=== PATIENT | female | born 1980 | race Caucasian/White ===

== ENCOUNTER → 2017-06-13 | Outpatient (CLI) | payer BC ==
[2017-06-13 15:07] LABS: THYROID STIMULATING HORMONE 1.52 uIu/ml (0.300-4.500)
[2017-06-16 13:34] LABS: CHLAMYDIA TRACH RNA*** NOT DETECTED (NOT DETECTED); GC (NEIS GONORRHOEAE)RNA** NOT DETECTED (NOT DETECTED)
== END | disposition home or self-care (01) ==
LOC: C.LAB1850 12:53
PROVIDERS: ATTEND Obstetrics & Gynecology
DX: Z34.02 Encounter for supervision of normal first pregnancy, second trimester (principal); Z3A.00 Weeks of gestation of pregnancy not specified

== ENCOUNTER → 2017-06-13 | Outpatient (CLI) | payer BC | END | disposition home or self-care (01) | LOC: C.PAPS 16:31 | PROVIDERS: ATTEND Obstetrics & Gynecology | DX: Z01.419 Encounter for gynecological examination (general) (routine) without abnormal findings (principal); Z3A.00 Weeks of gestation of pregnancy not specified ==

== ENCOUNTER → 2017-07-11 | Outpatient (CLI) | payer BC ==
[2017-07-11 18:25] LABS: URINE APPEARANCE CLEAR (CLEAR); URINE BILIRUBIN NEG (NEG); URINE COLOR YELLOW; URINE EPITHELIAL CELL AUTO 20-30 /lpf (0-5); URINE NITRITE NEG (NEG); URINE SPECIFIC GRAVITY 1.016 (1.000-1.030); UROBILINOGEN NEG (NEG)
[2017-07-11 18:29] LABS: MANUAL MICROSCOPIC REQUIRED? NO; REVIEW REQ? YES
== END | disposition home or self-care (01) ==
LOC: C.LABSPEC 17:41
PROVIDERS: ATTEND Obstetrics & Gynecology
DX: Z34.03 Encounter for supervision of normal first pregnancy, third trimester (principal)

== ENCOUNTER → 2017-09-10 | Outpatient (CLI) | payer BC | END | disposition home or self-care (01) | LOC: C.LABSPEC 12:51 | PROVIDERS: ATTEND Obstetrics & Gynecology | DX: Z34.03 Encounter for supervision of normal first pregnancy, third trimester (principal) ==

== ENCOUNTER 2017-10-15 01:50 | Outpatient (CLI) | payer BC ==
[2017-10-15] MEDS ORDERED: LEVO50TA PO (09:12)
[2017-10-15] MEDS ORDERED: FOLI1TAB8 PO (09:12)
--- NOTE | 2017-10-18 12:34 | EDITING REQUIRED CODING QUERY ---
DIAGNOSIS NEEDED To promote full compliance with coding requirements relating to patient care, physician participation is requested in all cases of automobile upholsterer apprentice uncertainty. Please assist us with the question(s) below: Coding Question: The patient received care in labor and delivery on 10/15/17 as noted within the record. Please document the diagnosis that is being addressed by the medication/treatment. Provider Response: DIAGNOSIS: False labor WEEKS OF GESTATION: 41 weeks ega Thank you for your assistance, Gayathri Anderson - Tube Sorter
== END 2017-10-15 02:50 ==
LOC: C.LD 01:50 → C.OPB 01:50
PROVIDERS: ATTEND Obstetrics & Gynecology
DX: O47.1 False labor at or after 37 completed weeks of gestation (principal); Z3A.41 41 weeks gestation of pregnancy

== ENCOUNTER 2017-10-15 08:53 | Inpatient (IN) | payer OTHER, BC ==
[~2017-10-15] VITALS: Ht 167.6 cm; Wt 85.5 kg
[2017-10-15] MEDS ORDERED: LEVO50TA PO (09:12)
[2017-10-15] MEDS ORDERED: FOLI1TAB8 PO (09:12)
[2017-10-15] MEDS ORDERED: LACTATED RINGER'S 1000ML 1,000 ML IV PRN (09:30)
[2017-10-15] MEDS ORDERED: LACTATED RINGER'S 1000ML 500 ML IV PRN ×2 (09:31→11:15)
[2017-10-15] MEDS ORDERED: OXYTOCIN 30 UNITS/500ML NSS IV PRN (09:45)
[2017-10-15 09:53] LABS: HEMATOCRIT 35.4 % (37-47); HEMOGLOBIN 11.6 g/dL (12.0-16.0); MEAN CELL VOLUME 85.5 fL (80-100); MEAN CORPUSCULAR HGB CONC 32.8 g/dl (32-36); MEAN PLATELET VOLUME 9.8 fL (7.4-10.4); PLATELET COUNT 264 K/uL (130-400); RED CELL DISTRIBUTION WIDTH CV 14.3 % (11.5-14.5); RED CELL DISTRIBUTION WIDTH SD 44.4 fL (36.4-46.3)
[2017-10-15 10:16] VITALS: Ht 167.6 cm; Wt 85.5 kg
[2017-10-15] MEDS ORDERED: EpHEDrine SULFATE INJ 50 MG/ML AMP ONE (10:22)
[2017-10-15] MEDS ORDERED: BUPIVACAINE 0.25% 30 ML VIAL ONE (10:22)
[2017-10-15] MEDS ORDERED: FENTANYL CITRATE INJ 50 MCG/1 ML 2 ML VIAL ONE (10:22)
[2017-10-15] MEDS ORDERED: FENTANYL 2MCG/ML ROPIV 1.25MG/ML 100ML BAG EPI ONE (10:23)
[2017-10-15] MEDS: LACTATED RINGER'S 1000ML 1,000 ML IV SCH ×2 (10:29→17:29)
[2017-10-15] MEDS ORDERED: EpHEDrine SULFATE INJ 50 MG/ML AMP IV PRN (11:15)
[2017-10-15] MEDS ORDERED: NALOXONE HCL INJ 0.4 MG/1 ML VIAL/CARP IV PRN (11:15)
[2017-10-15] MEDS ORDERED: DiphenhydrAMINE HCL 50 MG/ML VIAL IV PRN (11:15)
[2017-10-15] MEDS ORDERED: NALBUPHINE HCL INJ 10 MG/ML AMP IV PRN (11:15)
[2017-10-15] MEDS ORDERED: NALOXONE HCL INJ 1 MG in SODIUM CHLORIDE 0.9% 1000ML 1,000 ML IV PRN (11:15)
[2017-10-15] MEDS: FENTANYL 2MCG/ML ROPIV 1.25MG/ML 100ML BAG EPI PRN ×3 (14:57→23:03)
[2017-10-15] MEDS ORDERED: PENICILLIN G POTASSIUM IV 3 MU in DEXTROSE 5% 100ML 100 ML IV PRN (21:45)
[2017-10-15] MEDS ORDERED: PENICILLIN G POTASSIUM IV 6 MU in DEXTROSE 5% 250ML 250 ML IV ONE (22:00)
[2017-10-15] MEDS ORDERED: ACETAMINOPHEN 650 MG SUPP PR STA (22:21)
[2017-10-16] MEDS: LACTATED RINGER'S 1000ML 1,000 ML IV SCH (00:35)
[2017-10-16] MEDS: FENTANYL 2MCG/ML ROPIV 1.25MG/ML 100ML BAG EPI PRN (05:14)
--- NOTE | 2017-10-16 07:31 | Anesthesia Procedure Note ---
Anesthesia Epidural Removal Nt Date & Time Oct 16, 2017 at 07:31 Vital Signs Pain Intensity: 2.0 Notes Mental Status: alert / awake / arousable, participated in evaluation Nausea / Vomiting: adequately controlled Pain: adequately controlled Airway Patency, RR, SpO2: stable & adequate BP & HR: stable & adequate Hydration State: stable & adequate Neuraxial Anesthesia: was administered Anesthetic Complications: no major complications apparent, pt satisfied with anesthetic care Epidural: removed without complications, with tip intact
[2017-10-16] MEDS ORDERED: LACTATED RINGER'S 1000ML 1,000 ML IV SCH (07:38)
[2017-10-16] MEDS ORDERED: OXYCODONE/ACETAMINOPHEN 5-325 TAB PO PRN (07:45)
[2017-10-16] MEDS ORDERED: HYDROCORTISONE ACETATE 25 MG SUPP PR PRN (07:45)
[2017-10-16] MEDS ORDERED: LANOLIN OINT EXT PRN (07:45)
[2017-10-16] MEDS ORDERED: OXYTOCIN 30 UNITS/500ML NSS IV PRN (07:45)
[2017-10-16] MEDS ORDERED: ACETAMINOPHEN 325 MG TAB PO PRN (07:45)
[2017-10-16] MEDS ORDERED: BENZOCAINE 20% AER SPR 82.5 GM CAN EXT PRN (07:45)
[2017-10-16] MEDS ORDERED: DIPHTHERIA/TETANUS/PERTUSSIS 0.5 ML SYR/VIAL IM. ONE (07:45)
[2017-10-16] MEDS ORDERED: SUPERCREAM 0.870 % 15GM JAR EXT PRN (07:45)
[2017-10-16] MEDS: DOCUSATE SODIUM 100 MG CAP PO SCH (08:00)
[2017-10-16] MEDS: PRENATAL VITAMIN TAB PO SCH (08:00)
--- NOTE | 2017-10-16 08:04 | DELIVERY SUMMARY ---
DATE OF OPERATION: 10/16/2017 PREOPERATIVE DIAGNOSES: 1. Spence intrauterine at 41+ weeks. 2. Onset of labor. 3. Group B strep negative. 4. Maternal fever and suspected early chorioamnionitis. POSTOPERATIVE DIAGNOSES: Same. PROCEDURE: Spontaneous vaginal delivery. SURGEON: Yarelis Ibarra MD. CLOTH COLORER: None. ESTIMATED BLOOD LOSS: 400. FINDINGS: Placenta spontaneous and intact with a 3-vessel cord. COMPLICATIONS: None. DISPOSITION: Stable in labor and delivery. DESCRIPTION OF PROCEDURE: Kelly Fortune reached complete dilation with an urge to push and I was called to the room as her vertex was at +3 station. I prepped and gowned for delivery and coached the patient through her first half an hour of pushing. She was making very effective pushing efforts and moving the vertex downwards. My assessment of the position was occiput posterior. As delivery was not imminent, I briefly scrubbed out to go and attend to another patient's care and then returned to the room. I regowned and gloved and with further coaching and pushing efforts, the patient was able to deliver the head in a direct occiput anterior presentation. Gentle downward traction on the head and neck revealed that although there was no palpable nuchal cord there was actually a right shoulder cord very high up. This was then able to be retrieved and reduced over the head. Through the next push, the anterior shoulder which was the right shoulder delivered easily followed by the left shoulder and the reminder of a vigorous male was then delivered easily and placed on the maternal abdomen. The cord was doubly clamped and cut by the father of the baby. The infant quickly became vocal and was moving all four extremities equally. The placenta was spontaneously delivered and noted to have a three-vessel cord and to be intact. The cervix, vagina and perineum were examined including the use of a sterile Grave speculum to allow full inspection of the cervix. There were no lacerations requiring repair. Bimanual massage was undertaken due to some brisk bleeding and a gentle exploration of the lower uterine segment revealed no retained placenta but slight bogginess. Fortunately, uterine massage was all that was required as well as the usual dilute Pitocin infusion to assure normal lochia and good uterine contraction. At the present time, both mother and are in the delivery room, doing well having tolerated the delivery in stable condition. I attest to the content of the Intraoperative Record and any orders documented therein. Any exceptions are noted below. MTDD
--- NOTE | 2017-10-16 11:32 | Discharge Instructions ---
Discharge Instructions Date of Service Oct 16, 2017. Admission Reason for Admission: R/O Labor Discharge Discharge Diagnosis / Problem: Vaginal Delivery Discharge Goals Goal(s): Routine recovery after delivery Medications Continue Dispensed Medications: supercream, dermaplast, tucks, lansinoh Activity Recommendations Activity Limitations: per Instructions/Follow-up section . Instructions / Follow-Up Instructions / Follow-Up ACTIVITY RECOMMENDATIONS: * Gradual return to full activity over the next 2-3 weeks. * No lifting - nothing heavier than baby over the next 2-3 weeks. * Do not engage in vigorous exercise, sexual activity or sports until cleared by your physician. * Do not drive or operate any motorized equipment until cleared by your physician. * You may shower/bathe daily. MEDICATIONS: For discomfort or pain, you may use Acetaminophen (Tylenol), Ibuprofen (Advil), or Naproxen (Aleve) following the package directions. For constipation you may use Colace following the package directions. BREAST CARE: If you are not breast feeding: * Wear a supportive bra 24 hours a day for one to two weeks. * Avoid stimulating your breasts and nipples as much as possible during the first few weeks after delivery. * When taking a shower, have the warm water hit your back, not breasts. * When your breasts feel full, apply ice packs. Usually three to four times a day helps ease the discomfort. * Take a mild pain medication (Tylenol / Motrin) when you are uncomfortable. If breast feeding: * Use breast milk to lubricate nipples. Lansinoh cream may be used for sore nipples. You do not need to remove cream prior to breast feeding. If using a different brand of cream, check the label for directions regarding removal of cream prior to nursing. * Wear a supportive bra. * If having problems with breasts or breast feeding, call a behavioral health consultant or your health care provider. EPISIOTOMY CARE: After delivery, if you have an episiotomy (stitches), the following steps will ease discomfort and aid healing. * For the first 24 hours after delivery, place ice packs next to your episiotomy to help reduce swelling. * After the first 24 hour-period, sitz baths, either portable or in the tub, are suggested. A shower with a shower arm sprayed over the episiotomy may be comforting. * Karyna care should be done after each voiding and bowel movement. Squirt warm water from a plastic bottle over the perineum (region of the body between the anus and urinary opening) and pat dry. * Use Dermoplast to ease discomfort. Shake container. [place] directly over the episiotomy. Place a Tucks on a clean sanitary pad next to your episiotomy. SPECIAL CARE INSTRUCTIONS: When you are discharged from the hospital, it is important for you to follow the instructions listed below: * During the first week at home, you should be able to care for yourself and your baby. In addition, the usual light household activities are encouraged. * Limit your activities to the way you feel. Do not try to clean the house or move furniture. Be sensible. * If you actively engage in sports and have done so up until the time of your delivery, you may resume these activities as soon as you feel able. This may take up to one month or even longer. Use good judgment. * Continue to take your vitamins for at least six weeks after the of your baby. * Your diet need not be limited unless you were on a special diet before your delivery. Breast-feeding mothers need around 2500 calories per day and at least 64-80 ounces of fluid per day (8 to 10 glasses). * You should eat foods from the four major food groups. Crash diets or fad diets are to be avoided. Eating lean meats, fresh fruits and vegetables, low-fat dairy products, high fiber foods and a regular exercise program, will help you get back to your pre- weight without putting your health at risk. * Constipation is sometimes a problem after delivery. Take a mild laxative as needed. If breast feeding, Milk of Magnesia is acceptable to use. You may use a suppository or Fleets enema if no episiotomy. * A daily shower or tub bath is suggested. Be sure to thoroughly and gently dry the perineum. * A bloody vaginal discharge will usually continue until around four weeks post . A small amount of bleeding may continue for as long as six weeks. Vaginal discharge changes from the bright red bleeding after delivery to pink then brownish and finally yellowish-pink before becoming white and disappearing. * Bleeding may increase with activity. Your first period may come in 4-8 weeks. If you are breast feeding, your period may be delayed even longer. * [place] (sex) can begin whenever both you and your partner feel comfortable and do not have any form of genital infection. It is recommended that you wait at least six weeks for internal and external healing to occur. If you have questions, please talk to your health care practitioner. A condom should be used to prevent infection and . * Foreplay, gentle intercourse and lubrication is very important the first several times to prevent pain. A water-based lubricant such as K-Y jelly or Astroglide may be used. * If you have RH negative blood and your baby is RH positive, you will receive RHOGAM by injection prior to discharge. The nurse will give you a card to keep with you that has the date and place that you received RHOGAM after delivery. * During your care, you had a Rubella screen done to check for the presence of rubella antibodies in your blood. If your test was negative, you will receive a Rubella vaccine prior to discharge. This vaccine may cause a fever, soreness at the injection site and flu-like symptoms. If these symptoms persist, notify your health care practitioner. is not advised for one month after a Rubella vaccine. * Verbalizes understanding of car seat law as reviewed with patient nursing. * Car Seat hand-out given and reviewed with patient by nursing. * Shaken baby information reviewed with patient by nursing. Call you doctor if: * Heavy bleeding (saturating several pads an hour) or passing clots the size of your fist. * A fever >101 degrees F (38.3 degrees C) on two occasions four hours apart and /or chills. * Unusual pain in the pelvic or vaginal areas. * "Baby Blues" lasting longer than two weeks. If you have any questions or concerns, call your health care practitioner at . FOLLOW UP VISIT: * Please call the office at to schedule a 6 week examination. It is important you keep this appointment. It is important for you to make arrangements for either yearly or twice yearly check-ups thereafter. Current Hospital Diet Patient's current hospital diet: Regular OB Diet Discharge Diet Recommended Diet: Regular Diet Pending Studies Studies pending at discharge: no Medical Emergencies . Who to Call and When: Medical Emergencies: If at any time you feel your situation is an emergency, please call 911 immediately. . Non-Emergent Contact Non-Emergency issues call your: Primary Care Provider . . "Provider Documentation" section prepared by Mane Hardwick. . VTE Core Measure Inpt VTE Proph given/why not?: Treatment not indicated
[2017-10-16 13:45] VITALS: BP 118/72; PULSE 85; TEMP 36.8
[2017-10-16 14:00] VITALS: BP 120/66; PULSE 92; TEMP 37
[2017-10-16 15:30] VITALS: BP 107/69; PULSE 88; TEMP 36.8
[2017-10-16 19:30] VITALS: BP 118/74; PULSE 99; TEMP 36.9
[2017-10-16] MEDS: IBUPROFEN 600 MG TAB PO PRN (19:57)
[2017-10-17 00:25] VITALS: BP 110/73; PULSE 76; TEMP 36.3
[2017-10-17 03:35] VITALS: BP 100/68; PULSE 90; TEMP 36.4
[2017-10-17] MEDS: IBUPROFEN 600 MG TAB PO PRN ×3 (03:37→18:00)
--- NOTE | 2017-10-17 06:37 | Progress Note ---
Subjective Oct 17, 2017. Subjective conversation w/ patient (Patient seen and examined at bedside. No acute overnight events reported) Ambulation: limited ambulation Voiding: no voiding problems Passing Gas: Yes Diet Tolerance: Regular Diet Lochia: Moderate Feeding Type: Breast Feeding Pain: Minimal, worse with sitting forward. Controlled with pain meds Review of Systems Constitutional: No fever, No chills, No sweats Respiratory: No cough, No shortness of breath Cardiac: No chest pain, No edema Breast: No breast pain Abdomen: No pain, No nausea, No vomiting Female : No dysuria Objective Vital Signs Date Time Temp Pulse Resp B/P (MAP) Pulse Ox O2 Delivery O2 Flow Rate FiO2 10/17/17 03:35 36.4 90 16 100/68 (79) Room Air 10/17/17 00:25 Room Air 10/17/17 00:25 36.3 76 16 110/73 (85) Room Air 10/16/17 19:30 36.9 99 18 118/74 (89) Room Air 10/16/17 15:30 Room Air 10/16/17 15:30 36.8 88 18 107/69 (82) Room Air 10/16/17 14:00 37.0 92 18 120/66 (84) Room Air 10/16/17 13:45 36.8 85 18 118/72 (87) Room Air 10/16/17 10:15 Room Air Physical Exam General Appearance: WELL-APPEARING, WD/WN, NO APPARENT DISTRESS Respiratory/Chest: chest non-tender, lungs clear, normal breath sounds, no respiratory distress, no accessory muscle use Cardiovascular: regular rate, rhythm, no edema, no gallop, no murmur Abdomen: normal bowel sounds, non tender, soft, no organomegaly, no pulsatile mass Fundus: Firm, Non-Tender, Relation to Umbilicus (at umbilicus) Extremities: normal range of motion, non-tender, normal inspection, no pedal edema, no calf tenderness Laboratory Results Last 24 Hours Test 10/17/17 06:15 Medications Current Inpatient Medications Medications (Trade) Dose Ordered Sig/Obdulio Route Start Time Stop Time Status Last Admin Dose Admin Lactated Ringer's 500 ml @ 999 mls/hr Q31M PRN IV 10/15/17 09:31 11/14/17 09:30 Lactated Ringer's 1,000 ml @ 125 mls/hr Q8H IV 10/16/17 07:38 11/15/17 07:37 Oxytocin (Pitocin IV) 30 units UD PRN IV 10/16/17 07:45 11/15/17 07:44 Benzocaine (Dermoplast Aero Spr) 1 appln PRN PRN EXT 10/16/17 07:45 11/15/17 07:44 Cocaine HCl (Supercream 0.870% Cr) BID PRN EXT 10/16/17 07:45 10/30/17 07:44 Hydrocortisone Acetate (Anusol Hc Supp) 25 mg BID PRN [place] 10/16/17 07:45 11/15/17 07:44 Lanolin (Lanolin Oint) PRN PRN EXT 10/16/17 07:45 11/15/17 07:44 Prenat Multivit/ [place]/Iron/Folic Ac ( Vitamin Tab) 1 tab DAILY PO 10/16/17 08:00 11/15/17 07:59 Ibuprofen (Motrin Tab) 600 mg Q4H PRN PO 10/16/17 07:45 11/15/17 07:44 10/17/17 03:37 600 MG Acetaminophen (Tylenol Tab) 650 mg Q6H PRN PO 10/16/17 07:45 11/15/17 07:44 Oxycodone/ Acetaminophen (Percocet 5-325mg Tab) 1 tab Q4H PRN PO 10/16/17 07:45 10/30/17 07:44 Docusate Sodium (coLACE CAP) 100 mg BID PO 10/16/17 08:00 11/15/17 07:59 Assessment and Plan Post- Day#: 1 Continue Routine Care: 36 year old [id number] s/p NVD day 1 - continue encouraging ambulation and - monitor lochia - O+, rubella immune and GBS -ve - vitals reviewed and wnl - continue analgesia prn - Hgb 11.6 on arrival, will check today's Hgb when available Resident Physician Supervision Note: I interviewed and examined the patient. Discussed with Dr. Hardwick and agree with findings and plan as documented in the note. Any exceptions or clarifications are listed here: [None] Documented By: Damien Enciso Resident Tracking Resident Involvement: Resident Care Provided Care Provided: OB Delivery
[2017-10-17 06:48] LABS: HEMATOCRIT 28.4 % (37-47); HEMOGLOBIN 9.1 g/dL (12.0-16.0)
[2017-10-17 07:50] VITALS: BP 103/67; PULSE 69; TEMP 36.3; O2SAT 96
[2017-10-17] MEDS: PRENATAL VITAMIN TAB PO SCH (08:46)
[2017-10-17] MEDS: DOCUSATE SODIUM 100 MG CAP PO SCH ×2 (08:46→19:38)
[2017-10-17 13:15] VITALS: BP 119/85; PULSE 98; TEMP 36.6; O2SAT 98
[2017-10-17 16:25] VITALS: BP 121/77; PULSE 98; TEMP 36.6; O2SAT 98
[2017-10-18] VITALS: BP 115/70; PULSE 91; TEMP 36.6; O2SAT 97
--- NOTE | 2017-10-18 06:40 | Progress Note ---
Subjective Oct 18, 2017. Subjective conversation w/ patient (Patient seen and examined at bedside. No overnight events reported) Ambulation: ambulating normally Voiding: no voiding problems Diet Tolerance: Regular Diet Lochia: Moderate Feeding Type: Breast Feeding Pain: Mild burning when urine touches perineal area. No abdo pain. Review of Systems Constitutional: No fever, No chills Respiratory: No cough, No shortness of breath Cardiac: No chest pain Breast: No breast pain Abdomen: No pain, No nausea, No vomiting Female : No dysuria Objective Vital Signs Date Time Temp Pulse Resp B/P (MAP) Pulse Ox O2 Delivery O2 Flow Rate FiO2 10/18/17 00:00 36.6 91 18 115/70 (85) 97 Room Air 10/18/17 00:00 97 Room Air 10/17/17 16:25 Room Air 10/17/17 16:25 36.6 98 18 121/77 (92) 98 Room Air 10/17/17 13:15 36.6 98 24 119/85 (96) 98 Room Air 10/17/17 10:12 Room Air 10/17/17 08:05 Room Air 10/17/17 07:50 36.3 69 16 103/67 (79) 96 Room Air Physical Exam General Appearance: WELL-APPEARING, WD/WN, NO APPARENT DISTRESS Respiratory/Chest: chest non-tender, lungs clear, normal breath sounds, no respiratory distress, no accessory muscle use Cardiovascular: regular rate, rhythm, no edema, no gallop, no murmur Abdomen: normal bowel sounds, non tender, soft Fundus: Firm, Non-Tender, Relation to Umbilicus (1cm below u) Extremities: non-tender, normal inspection, no pedal edema, no calf tenderness Medications Current Inpatient Medications Medications (Trade) Dose Ordered Sig/Obdulio Route Start Time Stop Time Status Last Admin Dose Admin Lactated Ringer's 500 ml @ 999 mls/hr Q31M PRN IV 10/15/17 09:31 11/14/17 09:30 Lactated Ringer's 1,000 ml @ 125 mls/hr Q8H IV 10/16/17 07:38 11/15/17 07:37 Oxytocin (Pitocin IV) 30 units UD PRN IV 10/16/17 07:45 11/15/17 07:44 Benzocaine (Dermoplast Aero Spr) 1 appln PRN PRN EXT 10/16/17 07:45 11/15/17 07:44 Cocaine HCl (Supercream 0.870% Cr) BID PRN EXT 10/16/17 07:45 10/30/17 07:44 10/18/17 01:12 15 GM Hydrocortisone Acetate (Anusol Hc Supp) 25 mg BID PRN [place] 10/16/17 07:45 11/15/17 07:44 Lanolin (Lanolin Oint) PRN PRN EXT 10/16/17 07:45 11/15/17 07:44 Prenat Multivit/ [place]/Iron/Folic Ac ( Vitamin Tab) 1 tab DAILY PO 10/16/17 08:00 11/15/17 07:59 10/17/17 08:46 1 TAB Ibuprofen (Motrin Tab) 600 mg Q4H PRN PO 10/16/17 07:45 11/15/17 07:44 10/17/17 18:00 600 MG Acetaminophen (Tylenol Tab) 650 mg Q6H PRN PO 10/16/17 07:45 11/15/17 07:44 Oxycodone/ Acetaminophen (Percocet 5-325mg Tab) 1 tab Q4H PRN PO 10/16/17 07:45 10/30/17 07:44 Docusate Sodium (coLACE CAP) 100 mg BID PO 10/16/17 08:00 11/15/17 07:59 10/17/17 19:38 100 MG Assessment and Plan Post- Day#: 2 Continue Routine Care: 36 year old [id number] s/p NVD day 2 - continue encouraging ambulation and - monitor lochia - O+, rubella immune and GBS -ve - vitals reviewed and wnl - continue analgesia prn - Hgb 11.6 on arrival, decreased to 9.1 yesterday - review discharge instructions today as pt ready for d/c Resident Physician Supervision Note: I interviewed and examined the patient. Discussed with Dr. Hardwick and agree with findings and plan as documented in the note. Any exceptions or clarifications are listed here: Doing well. Plan d/c today. Instructions given. Documented By: Nallely Walter Resident Tracking Resident Involvement: Resident Care Provided Care Provided: OB Delivery
[2017-10-18 08:50] VITALS: BP 125/79; PULSE 87; TEMP 36.3
[2017-10-18] MEDS: DOCUSATE SODIUM 100 MG CAP PO SCH (09:12)
[2017-10-18] MEDS: PRENATAL VITAMIN TAB PO SCH (09:12)
[2017-10-18 16:00] VITALS: BP_DIAS 79; PULSE 87; TEMP 36.3
== END 2017-10-18 16:05 | disposition home or self-care (01) | DRG 774 ==
LOC: C.OPB 08:53 → C.LD 08:53 → C.OPB 09:31 → C.OBG 10-16 10:43
PROVIDERS: ADMIT Obstetrics & Gynecology; ATTEND Obstetrics & Gynecology
PROC: 10E0XZZ Delivery of Products of Conception, External Approach (ICD-10-PCS; principal; 2017-10-16)
PROC: 3E033VJ Introduction of Other Hormone into Peripheral Vein, Percutaneous Approach (ICD-10-PCS; principal; 2017-10-16)
DX: O75.2 Pyrexia during labor, not elsewhere classified (principal); O41.1231 Chorioamnionitis, third trimester, fetus 1; Z37.0 Single live birth; Z3A.41 41 weeks gestation of pregnancy

== ENCOUNTER → 2018-04-15 | Outpatient (CLI) | payer BC ==
--- NOTE | 2018-04-15 17:04 | DIAGNOSTIC IMAGING REPORT ---
R ANKLE MIN 3 VIEWS, R FOOT MIN 3 VIEWS CLINICAL HISTORY: RIGHT FOOT/ANKLE PAIN COMPARISON STUDY: None. FINDINGS: No fracture or dislocation within the right ankle. Small linear avulsion type fracture along the lateral aspect of the calcaneus. There is also a small linear ossific density along the dorsal aspect of the navicular bone suggesting an additional avulsion type fracture. No dislocation. Mild soft tissue swelling within the right ankle and dorsum of the midfoot. IMPRESSION: 1. Small avulsion type fractures at the lateral calcaneus and dorsal navicular bone. 2. No acute fracture or dislocation within the right ankle. Electronically signed by: Kt Simmons M.D. 04/15/2018 5:03 PM Dictated Date/Time: 04/15/2018 4:56 PM
== END | disposition home or self-care (01) ==
LOC: C.RDSM 10:08
PROVIDERS: ATTEND Family Medicine
DX: S99.911A Unspecified injury of right ankle, initial encounter (principal); X58.XXXA Exposure to other specified factors, initial encounter

== ENCOUNTER 2020-03-20 08:30 | Inpatient (IN) ==
[2020-03-20] MEDS ORDERED: OXYTOCIN 30 UNITS/500 ML BAG IV PRN ×4 (09:18→22:40)
[2020-03-20] MEDS ORDERED: LACTATED RINGER'S 1,000 ML IV PRN (09:18)
--- NOTE | 2020-03-20 09:22 | History & Physical Report ---
Date of Service March 20, 2020 Assessment & Plan (1) Dichorionic diamniotic twin , antepartum: Exam today confirms ruptured membranes her cervix is 3 cm her contraction activity is minimal we believe the rupture of membranes might of occurred 11 hours ago at this stage of recommended Pitocin patient seems to understand I have also strongly recommended epidural as she is twin and I would like to be able to give her the best chance of vaginal delivery specifically if the second baby is coming and we have an epidural I would be able to better guide the second baby's head down into the pelvis the patient seems to understand this Bedside ultrasound does confirm vertex vertex position. I discussed the higher rate of section with twin gestation and in labor History of Present Illness Primary Care Provider: Cali Isreal Patient with a known twin gestation diamniotic dichorionic with 38 completed weeks of gestation patient is known to our practice and has had a relatively uncomplicated twin until recently with baby B was somewhat smaller at 8th percentile estimated weight. She wishes vaginal delivery of both babies are in vertex position with 1 prior vaginal in the past. She describes a rupture of membranes at 1030 last night with leakage of fluid this is trickled on and off today she has had some contraction activity but this seems to have subsided she also has some small amount of bloody discharge. She states both babies are moving Allergies Allergy/AdvReac Type Severity Reaction Status Date / Time No Known Drug Allergies Allergy none Verified 03/18/20 14:35 Home Medications Home Medications Medication Instructions Recorded Confirmed Type levothyroxine 25 mcg tablet 25 mcg PO DAILYBB #40 tab 01/12/20 03/18/20 Rx aspirin 81 mg chewable tablet 81 mg PO DAILY 02/15/20 03/18/20 History ferrous sulfate [iron] 325 mg PO DAILY 03/11/20 03/18/20 History folic acid 1 mg PO DAILY 03/11/20 03/18/20 History Patient History Family History (Updated 03/20/20 @ 08:47 by Neyda Shah RN) Grandmother (Paternal) Thyroid disease Mother Breast cancer Grandfather (Paternal) Pancreatic cancer Social History Preferred Language: Citizen Of [place] Communication Ability: Effective Beliefs That Will Affect Care: None marital status: marital status details: Kirk Ahmadi [phone]) [phone] Current Living Situation: Spouse Current Living Situation Comment: lives with spouse, son, cat-spouse changing litter current occupational status: unemployed current occupation: homemaker Other Information That Helps Us Care for You: No Feels Safe at Home: Yes Safety Concerns: Feels Safe At This Time Smoking Status: Never smoker Hx Alcohol Use: No Hx Substance Use: No Physical Exam Constitutional: WD/WN, vitals as above Respiratory: normal respiratory effort, lungs clear to auscultation Cardiovascular: RRR, no murmur, no edema Genitourinary: Manual OB Exam: + cervical dilation 3 cm, + cervical effacement 50%, + station high and + amniotic fluid (Nitrazine and ferning and pooling positive) OB Exam Monitor Tracing: + external FHT monitor used Results & Data ([facility]) Vital Signs (Past 12 Hours) Vital Signs Temp Pulse Resp BP 03/20/20 08:55 88 125/79 03/20/20 08:45 98.6 F 18 Coding Level of Care Code None Diagnoses Dichorionic diamniotic twin , antepartum O30.049
[2020-03-20 09:45] LABS: Hematocrit (blood only) 35.4 % (37-47); Hemoglobin 11.3 g/dL (12.0-16.0); Mean Corpuscular Hemoglobin 27.6 pg (25-34); Mean Corpuscular Volume 86.3 fL (80-100); Mean Platelet Volume 9.6 fL (7.4-10.4); Platelet Count 221 K/uL (130-400); RDW Coefficient of Variation 17.5 % (11.5-14.5); RDW Standard Deviation 55.4 fL (36.4-46.3); White Blood Count 9.08 K/uL (4.8-10.8)
[2020-03-20 09:57] LABS: Mean Corpuscular Hgb Conc 31.9 g/dL (32-36)
--- NOTE | 2020-03-20 11:23 | Labor Progress Brief Note ---
Date of Service March 20, 2020 Patient is declined our recommendation of Pitocin at this stage however she is starting to contract more on her own I again strongly recommended epidural and early in the process due to the nature of delivery of twins she seems to understand this heart rates are category 12 Assessment & Plan Admission and Anticipated Discharge Date Admission Date: March 20, 2020 Results & Data ([facility]) Vital Signs (Past 12 Hours) Vital Signs Temp Pulse Resp BP 03/20/20 10:30 98.6 F 03/20/20 08:55 88 125/79 03/20/20 08:45 98.6 F 18 Coding Level of Care Code None
--- NOTE | 2020-03-20 12:54 | Labor Progress Brief Note ---
Date of Service March 20, 2020 Patient's contractions have mildly increased but are still spaced apart and heart rates are both category 1 I have again recommended Pitocin the patient is declining at this stage I offered the option of an epidural now she is 4 cm and she is declining this as well if we use an epidural I would recommend Pitocin as well we discussed that there is a window for Pitocin we discussed she has been ruptured membranes for greater than 12 hours now in a contraction pattern has not fully gone into labor and well its increase it is not at the point of active labor patient still declines intervention at this time Assessment & Plan Admission and Anticipated Discharge Date Admission Date: March 20, 2020 Results & Data ([facility]) Vital Signs (Past 12 Hours) Vital Signs Temp Pulse Resp BP 03/20/20 10:30 98.6 F 03/20/20 08:55 88 125/79 03/20/20 08:45 98.6 F 18 Coding Level of Care Code None
--- NOTE | 2020-03-20 12:58 | Labor Progress Brief Note ---
Date of Service March 20, 2020 Note we did discuss the infection risk with prolonged rupture of membranes she is group B strep negative and antibiotics are not indicated now but the patient is made aware of prolonged rupture of membranes being a risk factor for infection Assessment & Plan Admission and Anticipated Discharge Date Admission Date: March 20, 2020 Results & Data ([facility]) Vital Signs (Past 12 Hours) Vital Signs Temp Pulse Resp BP 03/20/20 10:30 98.6 F 03/20/20 08:55 88 125/79 03/20/20 08:45 98.6 F 18 Coding Level of Care Code None
--- NOTE | 2020-03-20 15:01 | Labor Progress Brief Note ---
Date of Service March 20, 2020 Patient still refusing any augmentation of labor at this stage she says she does not wish to make a decision right now she has been offered epidural as well with subsequent Pitocin or Pitocin now she declines these options Assessment & Plan Admission and Anticipated Discharge Date Admission Date: March 20, 2020 Results & Data ([facility]) Vital Signs (Past 12 Hours) Vital Signs Temp Pulse Resp BP 03/20/20 12:30 97.7 F 03/20/20 10:30 98.6 F 03/20/20 08:55 88 125/79 03/20/20 08:45 98.6 F 18 Coding Level of Care Code None
--- NOTE | 2020-03-20 17:55 | Labor Progress Brief Note ---
Date of Service March 20, 2020 Long conversation with the patient and her again I have recommended after examining her cervix which is still 4 cm and 50% effaced I have recommended augmentation with Pitocin. I have also suggested having an epidural as an epidural with twins is really ideal for a number of reasons including potential manipulation of the second baby after delivery of the first and this was explained to them in detail. I discussed they have been ruptured for 19 hours now as well and that there are risks of infection although there is no active elevation in temperature in the mother and the heart rates are not elevated I reviewed that an epidural now with potentially adding Pitocin after the epidural would be my first recommendation. We could also start Pitocin without the epidural I have recommended Pitocin since earlier this morning when she presented to the hospital but she has refused this. She is really not made si gnificant progress she is come from 3 to 4 cm however her contraction pattern has become closer together and her contractions subjectively have become stronger and more painful as well. I expressed my concern of starting Pitocin without the epidural as that is a possibility that her labor would progress quickly and that she might miss her window of epidural Her asked me a number of questions on the timing of epidural response times of anesthesiology and the percentage of time we would need to manipulate the second baby for delivery I tried to give the best reasonable answers I could again I recommend intervention now I have recommended intervention with augmentation and with Pitocin since she arrived in the hospital at this time they are not ready to make a decision but will let us know once they decide I have been in contact with our anesthesiologist as well just to ensure that he knew we had twins and when the patient wishes a consultation we will alert the anesthesiologist Assessment & Plan Admission and Anticipated Discharge Date Admission Date: March 20, 2020 Results & Data ([facility]) Vital Signs (Past 12 Hours) Vital Signs Temp Pulse Resp BP 03/20/20 16:23 97.9 F 78 20 131/79 03/20/20 12:30 97.7 F 03/20/20 10:30 98.6 F 03/20/20 08:55 88 125/79 03/20/20 08:45 98.6 F 18 Coding Level of Care Code None
--- NOTE | 2020-03-20 18:21 | Anesthesiology Consultation ---
Date of Service March 20, 2020 Assessment & Plan (1) Encounter for pre-operative examination: Chart Review Chart Review: Acceptable Risk for Surgery Consults Requested none ASA ASA2 Proposed Anesthesia Anesthesia Type: Labor Epidural Risk / Benefits Reviewed With: PT / POA / Parent / Guardian, Accepts Plan and Informed Consent Obtained History Height/Weight Height: 5 ft 6 in Weight: 92.079 kg Allergies Allergy/AdvReac Type Severity Reaction Status Date / Time No Known Drug Allergies Allergy none Verified 03/18/20 14:35 Medications Home Medications Medication Instructions Recorded Confirmed Last Taken levothyroxine 25 mcg tablet 25 mcg PO DAILYBB #40 tab 01/12/20 03/20/20 03/20/20 aspirin 81 mg chewable tablet 81 mg PO DAILY 02/15/20 03/20/20 03/19/20 ferrous sulfate [iron] 325 mg PO DAILY 03/11/20 03/20/20 03/19/20 folic acid 1 mg PO DAILY 03/11/20 03/20/20 03/19/20 Past Medical History Medical History History of chicken pox Microprolactinoma (Chronic) Pituitary adenoma Exercise / Class Metabolic Activity II 4-5 Yardwork/Stairs/Walk up hill Past Family History Family History Grandmother (Paternal) Thyroid disease Mother Breast cancer Grandfather (Paternal) Pancreatic cancer Past Surgical History Surgical History S/P dilatation and curettage S/P wisdom tooth extraction Past Anesthesia History No Hx of Anesthesia Complications and No Family Hx of Anesthesia Complications History of PONV No Hx of PONV and No Hx of Motion Sickness Social History Smoking Status: Never smoker Hx Alcohol Use: No Hx Substance Use: No substance use type: does not use Physical Exam Vital Signs Last Vital Signs Temp 97.9 F 03/20/20 16:23 Pulse 78 03/20/20 18:01 Resp 20 03/20/20 16:23 BP 125/81 03/20/20 18:01 ENMT Mouth: no dentition abnormality Thyromental Distance: > or= 3.5 Finger Breadths Mallampati Class: II Neck normal visual inspection Respiratory normal respiratory effort Auscultation: lungs clear to auscultation bilaterally Cardiovascular Rate/Rhythm: regular rate and regular rhythm Testing Laboratory Results 03/20/20 09:28 Blood Type O Positive 03/20/20 09:28 Antibody Screen NEGATIVE 03/20/20 09:28
--- NOTE | 2020-03-20 19:03 | Labor Progress Brief Note ---
Date of Service March 20, 2020 pt now accepts pitocin after having epid catheter placed Assessment & Plan Admission and Anticipated Discharge Date Admission Date: March 20, 2020 Results & Data ([facility]) Vital Signs (Past 12 Hours) Vital Signs Temp Pulse Resp BP Pulse Ox 03/20/20 19:00 83 121/68 03/20/20 18:58 79 122/68 03/20/20 18:56 88 117/67 97 03/20/20 18:54 75 124/67 03/20/20 18:53 87 120/63 03/20/20 18:51 82 122/68 98 03/20/20 18:48 100 H 133/70 03/20/20 18:46 82 127/73 97 03/20/20 18:45 90 130/69 03/20/20 18:41 84 133/68 98 03/20/20 18:36 88 98 03/20/20 18:31 80 98 03/20/20 18:26 82 98 03/20/20 18:01 78 125/81 03/20/20 16:23 97.9 F 78 20 131/79 03/20/20 12:30 97.7 F 03/20/20 10:30 98.6 F 03/20/20 08:55 88 125/79 03/20/20 08:45 98.6 F 18 Coding Level of Care Code None
[2020-03-20] MEDS ORDERED: DiphenhydrAMINE HCL 50 MG/ML VIAL IV PRN (20:08)
[2020-03-20] MEDS ORDERED: NALOXONE HCL 1 MG in SODIUM CHLORIDE 0.9% 1000ML 1,000 ML IV PRN (20:08)
[2020-03-20] MEDS ORDERED: fentaNYL 2MCG/ML ROPIV 1.25MG/ML 100 ML BAG EPI PRN (20:08)
[2020-03-20] MEDS ORDERED: ePHEDrine sulfate 50 MG/ML AMP IV PRN (20:08)
[2020-03-20] MEDS ORDERED: NALOXONE HCL 0.4 MG/1 ML VIAL/CARP IV PRN (20:08)
[2020-03-20] MEDS ORDERED: BUPIVACAINE 0.25% 30 ML VIAL ONE (20:19)
[2020-03-20] MEDS ORDERED: ePHEDrine sulfate 50 MG/ML AMP ONE (20:19)
[2020-03-20] MEDS ORDERED: fentaNYL citrate 100 MCG/2 ML VIAL ONE (20:19)
[2020-03-20] MEDS ORDERED: fentaNYL 2MCG/ML ROPIV 1.25MG/ML 100 ML BAG EPI ONE (20:20)
--- NOTE | 2020-03-20 21:57 | Anesthesiology Progress Note ---
Date of Service March 20, 2020 Subjective I was called to initiate the patient's epidural infusion. Upon arriving, the patient was in the operating room. The epidural was bolused with fentanyl 100mcg and 4mL of 0.125% bupivacaine. The patient's labor pains were improved. The patient's vital signs were stable throughout. Physical Exam Vital Signs: Last Vital Signs Temp 97.5 F L 03/20/20 20:59 Pulse 93 H 03/20/20 20:29 Resp 20 03/20/20 20:59 BP 105/67 03/20/20 20:09 Pulse Ox 98 03/20/20 20:29 Results & Data Medications Administered Lactated Ringer's (Lr) 1,000 mls @ 125 mls/hr IV .Q8H PRN; Protocol PRN Reason: L&D Protocol Stop: 03/22/20 09:17 Last Infusion: 03/20/20 19:00 Dose: 125 mls/hr Documented by: [id number] Admin: 03/20/20 18:25 Dose: 999 mls/hr Documented by: [id number] Oxytocin (Pitocin) 30 units in 500 mls @ 1 mls/hr IV .Q24H PRN; Protocol PRN Reason: Labor Induction/Augmentation Stop: 03/22/20 19:01 Last Titration: 03/20/20 21:49 Dose: 59.94 units/hr, 999 mls/hr Documented by: [id number] Admin: 03/20/20 19:27 Dose: 0.06 units/hr, 1 mls/hr Documented by: [id number] Cosigned by: [id number]
--- NOTE | 2020-03-20 22:03 | Delivery Summary ---
Vaginal Delivery Summary Date of Service March 20, 2020 Vaginal Delivery Summary Vaginal twin delivery the patient was taken back to the operating room and her epidural was dosed by anesthesia she was able to push with an anterior lip and delivered the first baby without difficulty it was delivered in occiput posterior position gentle traction on the baby no excessive force was used live vigorous infant cord clamped and cut and handed to pediatrics cord gases and cord blood were obtained second baby was then examined for vaginally and Dr. Zamora used the ultrasound to confirm vertex position baby was initially a little asynclitic but some pressure abdominally and then an artificial rupture of membranes by myself was able to get the baby into the pelvis she was unable to push the baby over a number of contractions this 1 in occiput anterior position. Baby's mouth and nares was entered suctioned and then baby had no nuchal cord and was delivered with gentle traction no excessive force live vigorous male infant cord clamped and cut cord gases obtained cord blood obtained At this stage the placenta was generally gently removed with traction and IV Pitocin was then started small second-degree tear repaired with 3-0 Vicryl estimate blood loss 100 mL sponge and instrument counts correct Note we put straight clamps on the cord gases of baby A and curved clamps on the cord gases of baby B
[2020-03-20] MEDS ORDERED: DIPHTHERIA/TETANUS/PERTUSSIS 0.5 ML SYR/VIAL IM ONE (22:40)
[2020-03-20] MEDS ORDERED: SUPERCREAM 0.870% 15 GM JAR EXT PRN (22:40)
[2020-03-20] MEDS ORDERED: OXYCODONE/ACETAMINOPHEN 5mg/325mg TAB PO PRN (22:40)
[2020-03-20] MEDS ORDERED: bisacodyL 10 MG SUPP PR PRN (22:40)
[2020-03-20] MEDS ORDERED: HYDROCORTISONE ACETATE 25 MG SUPP PR PRN (22:40)
[2020-03-20] MEDS ORDERED: BENZOCAINE 20% AER SPR 82.5 GM CAN EXT PRN (22:40)
[2020-03-20] MEDS ORDERED: ACETAMINOPHEN 325 MG TAB PO PRN (22:40)
[2020-03-20 22:48] LABS: Base Excess Cord Venous Blood -2.8 mEq/L (-7.7-1.9); CO2 Cord Arterial Blood 54 mmHg (39.1-73.5); Cord Venous Blood HCO3 22 mmol/L (18.4-26.8); Cord Venous Blood PCO2 38 mmHg (30.4-57.2); Cord Venous Blood PO2 34 mmHg (14.1-43.3); Cord Venous Blood pH 7.38 (7.20-7.44); HCO3 Cord Arterial Blood 23 mmol/L (19.7-28.5); PO2 Cord Arterial Blood 16 mmHg (4.1-31.7); pH Cord Arterial Blood 7.25 (7.1-7.38)
[2020-03-20 22:49] LABS: Oxygen Sat Cord Arterial Blood < 60.0 % (<60)
[2020-03-20 22:53] LABS: Base Excess Cord Arterial Bld -2.5 mEq/L (-9-1.8); CO2 Cord Arterial Blood 49 mmHg (39.1-73.5); Cord Venous Blood HCO3 22 mmol/L (18.4-26.8); Cord Venous Blood PCO2 38 mmHg (30.4-57.2); Cord Venous Blood PO2 31 mmHg (14.1-43.3); Cord Venous Blood pH 7.37 (7.20-7.44); HCO3 Cord Arterial Blood 24 mmol/L (19.7-28.5); O2 Saturation Cord Venous Bld 68.3 % (<68); Oxygen Sat Cord Arterial Blood < 60.0 % (<60); PO2 Cord Arterial Blood 21 mmHg (4.1-31.7); pH Cord Arterial Blood 7.32 (7.1-7.38)
--- NOTE | 2020-03-20 23:22 | Anesthesia Procedure Note ---
Date of Service March 20, 2020 Anesthesia Post Epidural Note Vital Signs Vital Signs: Temp Pulse Resp BP Pulse Ox 36.7 C 95 H 18 119/61 98 03/20/20 22:10 03/20/20 23:10 03/20/20 22:10 03/20/20 23:10 03/20/20 20:29 Notes Mental Status: alert / awake / arousable Nausea / Vomiting: adequately controlled Pain: adequately controlled Airway Patency, RR, SpO2: stable & adequate BP & HR: stable & adequate Hydration State: stable & adequate Neuraxial Anesthesia: was administered and sensory block is resolving Anesthetic Complications: no major complications apparent and Pt Satisfied with anesthetic care Epidural: Removed without complications and With tip intact
[2020-03-21] MEDS: IBUPROFEN 600 MG TAB PO PRN ×2 (00:21→12:59)
[2020-03-21] MEDS: LEVOTHYROXINE SODIUM 25 MCG TABLET PO SCH (05:09)
[2020-03-21 06:33] LABS: Hematocrit (blood only) 33.1 % (37-47); Hemoglobin 10.5 g/dL (12.0-16.0); Mean Corpuscular Hemoglobin 26.8 pg (25-34); Mean Corpuscular Hgb Conc 31.7 g/dL (32-36); Mean Corpuscular Volume 84.4 fL (80-100); Mean Platelet Volume 9.7 fL (7.4-10.4); Platelet Count 243 K/uL (130-400); RDW Coefficient of Variation 17.4 % (11.5-14.5); Red Blood Count 3.92 M/uL (4.2-5.4); White Blood Count 16.34 K/uL (4.8-10.8)
[2020-03-21] MEDS ORDERED: FOLIC ACID 1 MG TAB PO SCH (09:00)
[2020-03-21] MEDS: DOCUSATE SODIUM 100 MG CAP PO SCH ×2 (10:01→20:16)
[2020-03-21] MEDS: FERROUS SULFATE 325 MG TAB PO SCH (10:01)
[2020-03-21] MEDS: PRENATAL VITAMIN 1 TAB PO SCH (10:01)
[2020-03-21] MEDS ORDERED: bisacodyL 5 MG TABEC PO SCH (20:00)
[2020-03-22 05:45] LABS: Hematocrit (blood only) 32.6 % (37-47); Hemoglobin 10.1 g/dL (12.0-16.0)
[2020-03-22] MEDS: LEVOTHYROXINE SODIUM 25 MCG TABLET PO SCH (06:23)
--- NOTE | 2020-03-22 07:15 | Obstetrical Progress Note ---
Date of Service March 22, 2020 Assessment & Plan (1) Dichorionic diamniotic twin , antepartum: 39yo day 2 from x2. Doing well. Stable for discharge. (2) Supervision of high risk , antepartum: Subjective Ambulation: ambulating normally Voiding: no voiding problems Passing Gas:: Yes Diet Tolerance:: regular diet Lochia:: Moderate Feeding Type:: breast feeding Physical Exam Gastrointestinal (Abdomen) Percussion/Palpation: abdomen soft; abdomen nontender, no guarding and abdomen not rigid Results & Data ([facility]) Vital Signs (Past 12 Hours) Vital Signs Temp Pulse Resp BP Pulse Ox 03/21/20 23:30 36.8 C 89 18 110/68 97 03/21/20 19:15 36.6 C 85 18 109/69 96
[2020-03-22] MEDS: FERROUS SULFATE 325 MG TAB PO SCH (09:14)
[2020-03-22] MEDS: DOCUSATE SODIUM 100 MG CAP PO SCH (09:14)
[2020-03-22] MEDS: PRENATAL VITAMIN 1 TAB PO SCH (09:15)
== END 2020-03-22 18:45 | disposition home or self-care (01) | DRG 807 ==
LOC: OPB 08:30 → 4S1 08:31 → 4S2 03-21 00:15